=== PATIENT | female | born 2000 | race Two or more races ===

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

== ENCOUNTER 2020-05-27 22:25 | Emergency (ER) | payer MEDICAID ==
[~2020-05-27] VITALS: Ht 152.4 cm; Wt 49.9 kg
[2020-05-27 22:41] VITALS: BP 117/63
[2020-05-28] MEDS: IBUPROFEN 800 MG TAB PO ONE ×2 (04:15→04:33)
== END 2020-05-28 04:30 | disposition home or self-care (01) ==
LOC: ER 22:27
DX: R51.9 Headache, unspecified (principal); V49.9XXA Car occupant (driver) (passenger) injured in unspecified traffic accident, initial encounter; Y93.89 Activity, other specified; Y92.89 Other specified places as the place of occurrence of the external cause; Y99.8 Other external cause status
CPT/HCPCS: 70450; 81025

== ENCOUNTER 2022-02-17 13:52 | Emergency (ER) | payer MEDICAID ==
[~2022-02-17] VITALS: Ht 149.9 cm; Wt 47.7 kg
[2022-02-17 14:18] VITALS: BP 121/92
[2022-02-17] MEDS ORDERED: ACETAMINOPHEN 650 mg PER 20.3 mL UD PO ONE (14:30)
[2022-02-17 15:14] LABS: Basophils # (auto) 0 10 ^3/uL (0-0.2); Basophils % (auto) 0.2 % (0.0-2.0); Eosinophils # (auto) 0 10 ^3/uL (0-0.8); Eosinophils % (auto) 0.1 % (0.0-7.0); Hematocrit 40.7 % (36.0-46.0); Lymphocytes # (auto) 0.3 10 ^3/uL (0.4-5.4); Lymphocytes % (auto) 3.8 % (10.0-50.0); Mean Corpuscular Hgb Conc. 34.5 g/dL (32.0-36.0); Mean Corpuscular Volume 89.7 fL (80.0-100.0); Monocytes # (auto) 0.5 10 ^3/uL (0-1.3); Monocytes % (auto) 5.5 % (0.0-12.0); Neutrophils # (auto) 7.4 10 ^3/uL (1.6-8.6); Neutrophils % (auto) 90.4 % (37.0-80.0); Nucleated Red Blood Cells % 0.1 %; Red Blood Cells 4.53 10^6/uL (4.0-5.20); White Blood Cell 8.2 10^3/uL (4.4-10.8)
[2022-02-17 15:17] LABS: Albumin 4.3 g/dL (3.4-5.0); Calcium 9.3 mg/dL (8.5-10.1); Potassium 3.8 mmol/L (3.5-5.1)
[2022-02-17 15:20] LABS: BUN/Creatinine Ratio 12.2
[2022-02-17 15:22] LABS: Bilirubin, Total 0.6 mg/dL (0.2-1.0); Total Protein 8.3 g/dL (6.4-8.2)
[2022-02-17 17:38] LABS: Urine Bacteria NONE SEEN /hpf (None Seen); Urine Blood Negative /uL (Negative); Urine Mucus FEW (None Seen); Urine Specific Gravity 1.035 (1.001-1.035); Urine WBC <1 /hpf (0 - 5)
[2022-02-17] MEDS ORDERED: DEXT1SYP9 PO (18:03)
== END 2022-02-17 18:41 | disposition home or self-care (01) ==
LOC: ER 13:52
DX: R05.9 Cough, unspecified (principal)
CPT/HCPCS: 36415; 71045; 80053; 81001; 81025; 85025

== ENCOUNTER 2022-07-20 22:01 | Emergency (ER) | payer MEDICAID, OTHER ==
[~2022-07-20] VITALS: Ht 149.9 cm; Wt 52.0 kg
[~2022-07-20 22:01] MED LIST: DEXT1SYP9 PO
[2022-07-21] MEDS ORDERED: AMOX-277 PO (01:55)
[2022-07-21] MEDS ORDERED: ACET-1158 PO (01:55)
[2022-07-21 02:47] VITALS: BP 109/58
== END 2022-07-21 03:16 | disposition home or self-care (01) ==
LOC: ER 22:01
DX: S71.151A Open bite, right thigh, initial encounter (principal); Z88.1 Allergy status to other antibiotic agents; W54.0XXA Bitten by dog, initial encounter; Y93.89 Activity, other specified; Y92.69 Other specified industrial and construction area as the place of occurrence of the external cause; Y99.8 Other external cause status